=== PATIENT | female | born 1970 | race Caucasian/White ===

== ENCOUNTER → 2018-07-27 11:44 | Outpatient (CLI) | payer OTHER, SELFPAY ==
--- NOTE | 2018-07-27 10:15 | BRBX_PTH ---
PATIENT: RE MEDEROS LOC: [facility] U#:[id number] AGE/SX: 55/F ROOM: RE07/27/[address]: Dr. Faisal Aleman MD : 1970 BED: DIS: SPEC #: [id number] RECD: 07/27/18 11:07 STATUS: KATHY BAYLEE #: [id number] DANIELA: 07/27/18 10:[address]: Faisal Aleman DEPT: SURGICAL PATHOLOGY RECD BY: Dani Mallory Tissues: Right breast, NOS Procedures: Surgery Specimen Level IV HEADER OPERATION: Ultrasound-guided needle core biopsy right breast PRE-OP DIAGNOSIS: Abnormal mammogram right breast R92.8 TISSUE SUBMITTED: Right breast biopsy ISCHEMIC TIME: 5 seconds FIXATION TIME: 57.5 hours MICROSCOPIC DIAGNOSIS Right breast, ultrasound-guided needle core biopsy: Fragments of benign breast tissue with dense fibrosis and minimal intraductal hyperplasia without atypia. Negative for malignancy. SJ:marion 07/31/18 COMMENT Correlation with clinical, radiologic findings and appropriate follow up are necessary. MICROSCOPIC DESCRIPTION Slides are reviewed. GROSS DESCRIPTION Received in fixative is one container labeled with the patient's name and designated right breast biopsy. The specimen consists of multiple irregular and elongated fragments of light leger-white soft tissue that in aggregate measure 1.6 x 0.5 x 0.1 cm. The specimen is totally submitted in one cassette. / AM:marion 07/27/18 TC:5 CPT: 28403
== END ==
PROVIDERS: Visit Provider Surgery
DX: R92.8 Other abnormal and inconclusive findings on diagnostic imaging of breast (principal)
CPT/HCPCS: 88305

== ENCOUNTER → 2019-06-05 08:57 | Outpatient (CLI) | payer OTHER, SELFPAY ==
[2018-07-24 07:55] VITALS: BMI 34.0
--- NOTE | 2019-06-05 09:03 | US_ITS ---
MAMMOGRAPHY - BILATERAL DIAGNOSTIC REASON FOR EXAM: Female, 48 years old. 3 week history of right breast lump and pain. Prior ultrasound-guided right breast biopsy. PERTINENT HISTORY: Non-contributory. TECHNIQUE: Digital bilateral breast rosalba (3D mammographic acquisition) in the CC and MLO projections. 2-D mediolateral oblique (MLO) and craniocaudad (CC) views of both breasts were obtained. CAD: Full Field Digital Mammography with Computer Added Detection was performed. COMPARISON: Comparison is made with prior outside examination dated July 19, 2018 FINDINGS: Breast Composition: There are scattered areas of fibroglandular density. There is a stable 4.1 cm x 1.5 cm well-defined nodule in the inferior medial aspect of the right breast. A tissue clip marker is seen within. No other significant abnormalities are identified. There has been no significant change since the prior study. US/Breast Limited Unilateral IMPRESSION: Stable bilateral diagnostic mammogram. One year follow-up recommended. (A) ASSESSMENT CATEGORY: BIRADS Category 2: Benign. A letter regarding these results will be sent to the patient by the facility within 30 days. Approximately 10% of breast cancers are not detected by mammography. A normal mammogram should not delay biopsy of a clinically suspicious abnormality. Electronically Signed: Vinod Sotelo, at 10:39 EDT , Service support ,
== END ==
LOC: OPBI 08:59
PROVIDERS: Referring Provider Surgery; Visit Provider Surgery
DX: N63.10 Unspecified lump in the right breast, unspecified quadrant (principal); Z98.890 Other specified postprocedural states
CPT/HCPCS: 76642; 77062; 77066; G0279

== ENCOUNTER 2019-06-28 08:38 | Day surgery (SDC) | payer OTHER, SELFPAY ==
[2019-06-18 07:45] VITALS: BMI 34.0
--- NOTE | 2019-06-18 08:17 | HP_ITS ---
Intake Vital Signs 06/18/19 Body Mass Index (BMI) 34.0 06/18/19 Height 5 ft 4 in 06/18/19 Weight: 199 lb 8 oz 06/18/19 Body Mass Index (BMI) 34.2 06/18/19 Blood Pressure 130/86 H 06/18/19 Blood Pressure Location Rt brachial 06/18/19 Blood Pressure Position Sitting 06/18/19 Respiratory Rate 14 06/18/19 Pulse Rate 77 06/18/19 Pulse Source Monitor 06/18/19 Temperature 98.2 F 06/18/19 Temperature Source Oral 06/18/19 Pulse Ox 98 06/18/19 Oxygen Delivery Method room air Intake Visit Reasons: 1 YR F/U Mammo 06/06 [facility] Per Diem Interpreter Required: No Is patient in pain?: No Allergies No Known Allergies Allergy (Verified 06/18/19 07:42) Medications escitalopram 5 mg tablet 5 mg PO DAILY 07/24/18 [History Confirmed 06/18/19] alprazolam 0.5 mg tablet 0.5 mg PO DAILY 06/18/19 [History Confirmed 06/18/19] tizanidine 4 mg capsule 4 mg PO QHS PRN 06/18/19 [History Confirmed 06/18/19] PFSH Medical History Hemorrhoids (Acute) SOB (shortness of breath) (Acute) Anxiety (Acute) Arthritis (Acute) Fatigue (Acute) Surgical History Hx of right breast biopsy (Acute) Hx of neck surgery (Acute) Family History Mother Arthritis Cancer Skin cancer Diabetes Hypertension Kidney disease Thyroid disorder Father Arthritis Brother Hypertension Social History (Updated 06/18/19 @ 08:17 by Faisal Aleman MD) Smoking Status: Current every day smoker second hand exposure: Yes alcohol intake: never substance use type: does not use caffeine: Yes what type of physical activity do you participate in: none frequency: does not exercise seatbelt use: always HPI HPI HPI: RE MEDEROS, is a 49 F who presents to the office today for HPI HPI Surgical H&P: Yes HPI: RE MEDEROS, is a 49 F who presents to the office today for evaluation of a painful right breast mass. I recently saw this patient last year. I did a biopsy of her right breast mass which came back benign. She has had increasing discomfort from this area she is also had some generalized breast discomfort in the upper outer quadrant as well. Her most recent ultrasound showed a 2.8 cm mass at the 5 o'clock position approximately 5 cm from the nipple. Tissue biopsy clip was seen within this abnormality. Patient would like to have this lump removed since it is so tender. ROS General General: No weight change, appetite, fatigue, colon cancer, breast cancer or weakness HEENT HEENT: No difficulty swallowing, eye injury, eye surgery, swollen glands or hoarseness Endo Endocrine: No thyroid disease, diabetes mellitus, thyroid cancer, Hair loss, heat intolerance or cold intolerance Skin Skin: No rash or changing moles Breast Breast: Yes right breast lump, breast pain, abnormal mammogram and abnormal US; no left breast lump, nipple discharge or breast enlargement Musc Musculoskeletal: Yes arthritis; no back problems, rheumatoid arthritis, gout or joint pain Cardio Cardiovascular: No murmur, pacemaker, heart disease, atrial fibrillation, high blood pressure, heart attack, heart stent, palpitations, shortness of breat with exertion or chest pain Psych Psychiatric: Yes anxiety; no depression or hearing voices Resp Respiratory: No shortness of breath, No sleep apnea, No cough, No COPD, No asthma, No emphysema, No wheezing Gastro Gastrointestinal: No abdominal pain, No nausea or vomiting, No diarrhea, No constipation, No blood in stool, No acid reflux, Yes hemorrhoids, No ulcers, No gallbladder problem, No black,tarry stools Chuck Hematologic: No blood thinners, No blood disorders, No bleeding, No anemia, No blood clots Neuro Neurologic: Yes numbness, Yes tingling, No weakness, Yes other (hx of stroke/TIA) Exam Const General: no acute distress, well developed, well hydrated Orientation: oriented to person, oriented to place, oriented to time [facility] Head: normal to inspection, normocephalic, atraumatic Ears: external ears normal Mouth: oropharynx normal, moist mucous membranes Eyes General: appearance normal, both eyes and all related structures Sclera: sclerae normal Pupils: normal by confrontation Neck Neck: trachea midline, no lymphadenopathy noted Neck mass: No Thyroid: thyroid normal Lymphatic: no lymphadenopathy noted Chest Chest palpation & inspection: normal inspection of the chest Breast inspection: normal inspection of the breasts Breast Palpation: No nipple discharge Other: Palpation of the right breast reveals palpable breast mass at the 5 o'clock position 5 cm slightly tender to touch. Palpation of the left breast reveals no palpable masses. Axillary exam demonstrates no suspicious masses in either the left or right axilla. Resp Effort & Inspection: normal respiratory effort Auscultation: clear to auscultation bilaterally Percussion: percussion normal Other: Respiratory Exam: Deferred Cardio Rate: regular rate Rhythm: regular rhythm Heart Sounds: no murmurs Other: Cardiac Exam: Deferred GI Palpation: soft, no hepatosplenomegaly, no masses, nontender Rectal Exam: other Other: GI Exam: Deferred Other: Rectal Exam: Deferred Extrem General: normal to inspection, no clubbing, cyanosis or edema Other: Extremity Exam: Deferred Assessment & Plan Problems 1. Breast lump N63.0 Plan I have discussed above with the patient. I have recommended excissional right breast biopsy. Patient has been counseled to the risks/benefits of the procedure. I have explained the risks of the surgery, including but not limited to: infection, bleeding, injury to any blood vessels/nerves, scar tissue, missing the lesion, further surgery, etc. - the patient understands and agrees to proceed. I have answered all of the patient's questions to her satisfaction and she has no further questions. Coding Level of Care Code Off vis,est,level 3 Diagnoses Breast lump N63.0 06/18/19 0817 <Electronically signed by Faisal leone MD> Date _ Faisal Aleman MD I have re-examined the patient. There are no clinical changes since date of exam.
[2019-06-28 09:00] VITALS: BP 136/86; PULSE 60; RESP 16; TEMP 36.7; O2SAT 97; BMI 33.5
--- NOTE | 2019-06-28 11:00 | BRBX_PTH ---
PATIENT: RE MEDEROS LOC: [facility] – [place], [place] U#:[id number] AGE/SX: 49/F ROOM: RE06/28/[address]: Dr. Faisal Aleman MD : 1970 BED: DIS: 06/28/2019 SPEC #: [id number] RECD: 06/28/19 13:07 STATUS: KATHY BAYLEE #: [id number] DANIELA: 06/28/19 11:[address]: Faisal Aleman DEPT: SURGICAL PATHOLOGY RECD BY: Dani Mallory Tissues: Right breast, NOS Procedures: Surgery Specimen Level V HEADER OPERATION: Excisional breast biopsy PRE-OP DIAGNOSIS: Breast lump TISSUE SUBMITTED: Right breast tissue MICROSCOPIC DIAGNOSIS Right breast, excisional biopsy: Consistent with hamartoma with focal adenosis and fibrocystic changes. Focal mild ntraductal hyperplasia without atypia. Negative for malignancy. SJ:marion 07/02/19 COMMENT Please make reference to previous specimen ([id number]) right breast, ultrasound-guided needle core biopsy with diagnosis of fragments of benign breast tissue with dense fibrosis and minimal intraductal hyperplasia without atypia. Case has been reviewed in consultation with Dr. Edge who concurs with the above diagnosis. IDC:AM MICROSCOPIC DESCRIPTION Slides are reviewed. GROSS DESCRIPTION Received in fixative is one container labeled with the patient's name and designated right breast tissue. The specimen consists of a piece of fibroadipose tissue measuring 5 x 4 x 2.5 cm. The specimen is not oriented. The specimen is inked, serially sectioned and reveals leger, round solid nodule measuring 4 x 2.5 x 1.5 cm. The nodule is present focally close to the resection margin; however, it is completely excised. Cuprous Chloride Operator sections are submitted in six cassettes. 80% of the nodule is submitted. / SJ:rg 07/01/19 TC:5 CPT: 08480
--- NOTE | 2019-06-28 11:25 | SUR.PREOP ---
Per OR charge nurse, Shaina, RN, conversation with pt, pt declines test, states haven't had a period since December, and I'm a lesbian. Anesthesia aware and agreeable to proceed with surgery.
[2019-06-28] MEDS: Cefazolin 2 GM in 0.9% Normal Saline 100 ML IV (11:28)
[2019-06-28] MEDS: Bupivacaine Mpf 0.5% 30 ML VIAL (11:47)
--- NOTE | 2019-06-28 11:50 | DCINST_ITS ---
Discharge Diet: No Restrictions Discharge Activity: Return to Normal Activity May shower in (days): 3 Remove Dressing in (days):: 3 - Leave Dermabond in place. Allergies/Adverse Reactions: Allergies No Known Allergies Allergy (Verified 06/21/19 11:28) Medications to take at Discharge escitalopram 5 mg tablet 5 mg PO DAILY 07/24/18 alprazolam 0.5 mg tablet 0.5 mg PO DAILY 06/18/19 tizanidine 4 mg capsule 4 mg PO QHS PRN 06/18/19 Oxycodone HCl/Acetaminophen [Percocet 5/325] 1 - 2 tab PO Q4H PRN PRN 6 Days #30 tab 06/28/19 The following prescriptions were given: Oxycodone HCl/Acetaminophen [Percocet 5/325] 1 - 2 tab PO Q4H PRN PRN 6 Days #30 tab PRN Reason: Pain Prescription Printed Primary Care Physician: VIVIANA BOONE [Other] Test Results: Test results from this visit will be discussed in further detail at your follow- up appointment, if applicable. Please Follow Up With: Faisal Aleman MD - [phone] When: Please call for an appointment to be seen in one week.
--- NOTE | 2019-06-28 11:50 | PCM.OPRPT ---
Problem List (1) Mass of breast Status: Acute Report of Operation Date of Procedure: 06/28/19 Pre-Operative Diagnosis: Right breast mass Post-Operative Diagnosis: Same Surgery/Procedure Performed:: Excisional right breast biopsy Type of Anesthesia:: Local MAC Anesthesiologist: Garrett Tirado Specimen's removed: Right breast mass Estimated Blood Loss (mL): < 5 cc Fluids Replaced: 500 cc LR Description of Procedure: Patient was brought in the operating room placed in the supine position. Under excellent MAC anesthetic the right breast was sterilely prepped draped usual fashion. Local was injected at the 5 o'clock position. Incision was made. Dissection was carried down electrocautery was used to create a dissection around this breast mass. I sent it to pathology for permanent sectioning I had excellent hemostasis I did not get into the mass itself. I brought the wound together with a subcu stitch of 2-0 Vicryl deep dermals with 3-0 Vicryl in a running 4-0 Monocryl Dermabond was applied sterile dressings were applied and the patient tolerated the procedure well. - Admit VTE Documentation VTE Present on Admission: No VTE Mechan Device Prophylaxis: SCD's VTE Pharm Prophylaxis ordered?: No Reason prophylaxis not ordered:: Treatment Not Indicated
[2019-06-28 12:01] VITALS: BP 136/86; BP 89/57; PULSE 66; RESP 16; TEMP 36.3; O2SAT 94
[2019-06-28 12:06] VITALS: BP 136/86; BP 89/60; PULSE 50; RESP 16; O2SAT 95
[2019-06-28 12:12] VITALS: BP 136/86; BP 92/60; PULSE 52; RESP 16; O2SAT 95
[2019-06-28 12:17] VITALS: BP 136/86; BP 93/68; PULSE 50; RESP 16; TEMP 36; O2SAT 96
[2019-06-28 12:50] VITALS: BP 136/86
== END 2019-06-28 12:58 | disposition home or self-care (01) ==
LOC: SDC 08:39 → AC 08:41
PROVIDERS: Referring Provider Surgery; Visit Provider Surgery
PROC: (CPT 19120; principal; 2019-06-28 10:45)
DX: N60.21 Fibroadenosis of right breast (principal); N60.91 Unspecified benign mammary dysplasia of right breast; M19.90 Unspecified osteoarthritis, unspecified site; F32.9 Major depressive disorder, single episode, unspecified; F41.9 Anxiety disorder, unspecified; F17.200 Nicotine dependence, unspecified, uncomplicated; Z79.899 Other long term (current) drug therapy
CPT/HCPCS: 19120; 88305; 88307; J7120; J2405